=== PATIENT | female | born 1990 | race Caucasian/White ===

== ENCOUNTER 2016-12-18 06:26 | Inpatient (IN) | payer BC ==
[~2016-12-18] VITALS: Ht 157.5 cm; Wt 83.5 kg
--- NOTE | ~2016-12-18 | OR ---
PATIENT'S NAME: QUINTEN BAIRD [facility] AGE: 26 Y [address] ROOM: [place] [id number] LOCATION: [facility] ADMIT DATE: 12/18/2016 OR/Procedure Report DISCHARGE DATE: FAMILY PHYSICIAN: MARIO MASTERSON PA-C ATTENDING PHYSICIAN: Vladimir Morris SURGEON: Vladimir Morris MD [employer] SUPERVISOR: DATE OF PROCEDURE: 12/18/2016 PREOPERATIVE DIAGNOSIS: Post dates intrauterine , successful Pitocin induction of labor. POSTOPERATIVE DIAGNOSIS: Post dates intrauterine , successful Pitocin induction of labor. PROCEDURE: Vaginal delivery, repair of perineal laceration. ANESTHESIA: No assistants. ANESTHESIA: Epidural. ESTIMATED BLOOD LOSS: 200 mL. CLINICAL INDICATION: Quinten Baird is a 26-year-old white female, 2, para 1, at term. Postdates, she presents for an induction of labor. She would have prostaglandin gel followed by Pitocin and was successful in bringing about complete cervical dilatation. The patient would push effectively. FINDINGS: Delivery of viable 9 pound 5 ounce male , scores were 8 at one minute, 9 at five minutes. umbilical, arterial cord blood gas is pending at the time of this dictation. DESCRIPTION OF PROCEDURE: The patient was left in Labor and Delivery room, prepped and draped in the usual fashion. She would deliver a viable 9 pound 5 ounce male infant over an intact perineum. The umbilical cord was doubly clamped, the intervening segment was cut. The was handed off to the mother and later the awaiting nursing services. , umbilical, arterial cord blood, and venous cord blood were obtained for blood gas analysis and routine studies respectively. Placenta delivered spontaneously intact with 3 vessels. Exploration of the cervix and vagina noted them to be intact with the exception of a small perineal laceration slightly to the left of midline. This was repaired using a 3-0 Vicryl suture in running continually locking fashion. Sponge, needle, and instrument counts were correct. The patient tolerated the procedure well and remained in Labor and Delivery room in [facility] PATIENT'S NAME: QUINTEN BAIRD [facility] AGE: 26 Y [address] ROOM: [place] [id number] LOCATION: [facility] ADMIT DATE: 12/18/2016 OR/Procedure Report DISCHARGE DATE: FAMILY PHYSICIAN: MARIO MASTERSON PA-C ATTENDING PHYSICIAN: Vladimir Morris condition. VLADIMIR MORRIS MD DHPriyank/modl /[id number] d: 12/19/16 0255 t: 12/30/16 0710, OPERATIVE SUMMARY
[2016-12-18] MEDS ORDERED: BANZEL400 MG PO (06:59)
[2016-12-18] MEDS ORDERED: [UNRECOGNIZED DRUG - REMARK] PO (07:01)
[2016-12-18] MEDS ORDERED: PRENATAL 1+1)(P1 TAB PO (07:01)
[2016-12-18] MEDS ORDERED: OSCAL + D500 MG PO (07:02)
[2016-12-18] MEDS ORDERED: FEOSOL325 MG PO (07:02)
[2016-12-18] MEDS ORDERED: [UNRECOGNIZED DRUG - OTHER] PO (07:05)
[2016-12-18] MEDS ORDERED: FOLIC ACID1 MG PO (07:06)
[2016-12-18 07:59] LABS: BASOPHIL # 0.1 K/uL (0.0-0.2); BASOPHIL % 0.5 %; EOSINOPHIL # 0.1 K/uL (0.0-0.5); EOSINOPHIL % 0.6 %; HEMATOCRIT 36.4 % (33.0-46.0); HEMOGLOBIN 12.2 g/dL (11.0-15.0); IMMATURE GRANULOCYTE # 0.2 K/uL (0.0-0.3); IMMATURE GRANULOCYTE % 1.4 %; LYMPHOCYTE # 2.5 K/uL (0.8-4.0); LYMPHOCYTE % 22.6 %; MCH 29.5 pg (27.0-34.0); MCHC 33.5 gm/dL (32.0-36.5); MCV 88.1 fl (83.0-98.0); MONOCYTE # 0.8 K/uL (0.0-1.0); MONOCYTE % 7.2 %; MPV 11.1 fl (9.4-12.4); NEUTROPHIL # (ANC) 7.5 K/uL (1.8-7.8); NEUTROPHIL % 67.7 %; NRBC % 0 /100WBC (0-0.00); PLATELET COUNT 170 K/uL (150-450); RBC 4.13 M/uL (3.50-5.00); RDW-CV 14.1 % (11.9-14.6); WBC 11.1 K/uL (4.0-11.0)
--- NOTE | 2016-12-18 17:51 | NUR ---
7CMS AT 1735. PITOCIN AT 9MU AT THAT TIME. TENA CATH INPLACE. COMFORTABLE W/ EPIDURAL. ROOM SET UP FOR DELIVERY 10 SPONGES AND 2 NEEDLES. 1000MLS LR CREDIT AND 950MLS CREDIT FOR PITOCIN.
[2016-12-18 21:16] LABS: PCO2 68 mmHg (35-45); PO2 14 mmHg (80-90)
[2016-12-19 04:58] LABS: BASOPHIL % 0.3 %; EOSINOPHIL # 0.1 K/uL (0.0-0.5); EOSINOPHIL % 0.4 %; HEMOGLOBIN 10.1 g/dL (11.0-15.0); IMMATURE GRANULOCYTE # 0.1 K/uL (0.0-0.3); LYMPHOCYTE # 2.8 K/uL (0.8-4.0); LYMPHOCYTE % 20.1 %; MCH 29.3 pg (27.0-34.0); MCHC 33.7 gm/dL (32.0-36.5); MONOCYTE # 1.2 K/uL (0.0-1.0); MPV 10.8 fl (9.4-12.4); NEUTROPHIL # (ANC) 9.5 K/uL (1.8-7.8); NEUTROPHIL % 69.2 %; NRBC % 0 /100WBC (0-0.00); PLATELET COUNT 142 K/uL (150-450); RBC 3.45 M/uL (3.50-5.00); WBC 13.8 K/uL (4.0-11.0)
--- NOTE | 2016-12-19 13:40 | NUR ---
Introduced self/role to patient. 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 Her and her also have a 3 year old son. She is currently being followed by a Neurologist and has no concerns regarding her epilepsy. Plans to go home in the morning. Have all their baby supplies.
--- NOTE | 2016-12-19 16:49 | NUR ---
Last VS: T:98.1 P:100 R: 14 BP: 136/80 Pain ratin-4 Last pain med: Motrin Medicated at: 1410 Effective: Yes Breasts: SOFT Nipples: INTACT Fundus: FIRM Lochia: SMALL Epis/Perineum: INTACT BUT LABIA SWOLLEN/USES ICE PKS/TEA PADS Voiding well: Y Significant event: *.UP AD SONALI, TOOK LONG AFTERNOON NAP AFTER 1415 BF'ING.
[2016-12-20] MEDS ORDERED: PERCOCET 5-3251 EACH PO (08:46)
== END 2016-12-20 11:45 | disposition disaster alternative care site (69) | DRG 775 ==
LOC: GOBS 06:26 → GOBM 06:26 → GOBS 06:27 → GOBM 06:28 → GOBS 06:28 → GOBM 10:26 → GOBS 12-20 11:45
PROVIDERS: ADMIT Obstetrics & Gynecology
PROC: 0HQ9XZZ Repair Perineum Skin, External Approach (ICD-10-PCS; principal; 2016-12-18)
PROC: 10E0XZZ Delivery of Products of Conception, External Approach (ICD-10-PCS; 2016-12-18)
PROC: 3E0P7GC Introduction of Other Therapeutic Substance into Female Reproductive, Via Natural or Artificial Opening (ICD-10-PCS; 2016-12-18)
DX: O48.0 Post-term pregnancy (principal); G40.909 Epilepsy, unspecified, not intractable, without status epilepticus; Z37.0 Single live birth; Z3A.40 40 weeks gestation of pregnancy; O75.89 Other specified complications of labor and delivery
CPT/HCPCS: J2590; J3010; J7120